=== PATIENT | female | born 1955 | race Caucasian/White ===

== ENCOUNTER 2017-08-29 02:05 | Emergency (ER) | payer BC ==
[2017-08-29] MEDS: KETOROLAC 60 MG/2 ML INJ. IM ×2 (03:04)
[2017-08-29] MEDS: HYDROcodone/APAP 5/325MG 1 TAB TABLET PO ×2 (03:04)
== END 2017-08-29 04:20 | disposition home or self-care (01) ==
LOC: ER 02:05
DX: M25.461 Effusion, right knee (principal); E11.9 Type 2 diabetes mellitus without complications; Z88.8 Allergy status to other drugs, medicaments and biological substances
CPT/HCPCS: 73562; 93971; 96372; 99284; J1885

== ENCOUNTER 2018-08-24 07:56 | Emergency (ER) | payer BC ==
[~2018-08-24] VITALS: Ht 167.6 cm; Wt 77.1 kg
[~2018-08-24 07:56] MED LIST: ASPI325T8 PO; CHOL400C2 PO; DOXY50SY PO; HYDR-3164 PO; IBUP-985 PO; INSU100I13 SQ; LISI1POW MC; LISI1TAB3 PO; METF10007 PO; METO-239 PO; MULT-234 PO
[2018-08-24 08:16] VITALS: BP 144/64
[2018-08-24] MEDS ORDERED: HYDROcodone/APAP 5/325MG 1 TAB TABLET PO ONE (08:30)
--- NOTE | 2018-08-24 08:41 | PHYS DOC ---
Past Medical History Past Medical History: CAD, Diabetes-Type II, Hypertension Past Surgical History: Hysterectomy Additional Past Surgical Histo: cabg x2 2012 Alcohol Use: None Drug Use: None Adult General Chief Complaint Chief Complaint: MECHANICAL FALL HPI HPI Patient is 63 yo female who presents with complaint of pain in R ribs, R knee, and L foot after fall on Saturday. Patient reports she was shoveling snow on Saturday while talking on the phone. She says she was not paying attention and fell over a curb. She denies loss of consciousness or hitting her head and reports she was able to walk following fall. She returned to work and Saturday where she is required to stand and ambulate, but presents today because the pain has gradually worsened. She took a tylenol PM last night for pain relief and slept with a heating pad on her ribs, however she was unable to get much rest. She also admits to chills but denies cough, chest pain, shortness of breath, abdominal pain, nausea, vomiting, or diarrhea. She denies smoking, etoh use, or drug use. Review of Systems Review of Systems Constitutional: Admits chills Eyes: Denies change in visual acuity, redness, or eye pain [] Respiratory: Denies cough or shortness of breath [] Cardiovascular: Denies chest pain or palpitations GI: Denies abdominal pain, nausea, vomiting, bloody stools or diarrhea [] Musculoskeletal: Denies back pain. Admits to R rib pain, just below R breast. Admits R knee pain. Admits L foot pain. Integument: Denies rash or skin lesions [] Neurologic: Denies headache, focal weakness or sensory changes [] Complete systems were reviewed and found to be within normal limits, except as documented in this note. Current Medications Current Medications Current Medications Medications (Trade) Dose Ordered Sig/Jaya Start Time Stop Time Status Last Admin Dose Admin Acetaminophen/ Hydrocodone Bitart (Lortab 5/325) 1 tab 1X ONCE 08/24/18 08:30 08/24/18 08:31 DC 08/24/18 08:57 1 TAB Allergies Allergies Allergies Coded Allergies Type Severity Reaction Last Updated Verified pseudoephedrine Allergy Unknown 11/12/13 Yes Physical Exam Physical Exam Constitutional: Well developed, well nourished, no acute distress, non-toxic appearance. [] HENT: Normocephalic, atraumatic, no oral exudates, nose normal Eyes: PERRLA, EOMI, conjunctiva normal Neck: Normal range of motion, no tenderness Cardiovascular:Regular rhythm, tachycardic Lungs & Thorax: Bilateral breath sounds clear to auscultation; minimal erythema RUQ Abdomen: Soft, nonperitoneal, mild RUQ tenderness to palpation. No ecchymosis. Skin: Warm, dry, no erythema, no rash. [] Back: No tenderness, no CVA tenderness. [] Extremities: Tenderness to palpation and valgus testing on lateral aspect proximal portion of R knee. L foot has minor ecchymosis and swelling. Moderate tenderness with palpation base of 5th metatarsal. Neurologic: Alert and oriented X 3, normal motor function, normal sensory function, no focal deficits noted. [] Psychologic: Affect normal, judgement normal, mood normal. [] Current Patient Data Vital Signs Vital Signs Date Time Temp Pulse Resp B/P (MAP) Pulse Ox O2 Delivery O2 Flow Rate FiO2 08/24/18 08:57 15 96 Room Air 08/24/18 08:16 98.6 100 144/64 (90) 98.6 EKG EKG [] Radiology/Procedures Radiology/Procedures [PROCEDURE: ANKLE LEFT 3V Left foot and ankle radiograph 08/24/2018 8:23 AM INDICATION: Left foot and ankle pain after fall COMPARISON: None available. TECHNIQUE: 3 views of the left foot and 3 views the left ankle are provided. FINDINGS: There is no acute fracture or dislocation. Tibial plafond and talar dome are intact. Ankle mortise is congruent. Vascular calcifications are present. Bone mineralization is within normal limits. Joint spaces are maintained. Regional soft tissues are within normal limits. There is no soft tissue gas or osseous erosion. IMPRESSION: No acute fracture or dislocation. Electronically signed by: Amy Galloway MD (08/24/2018 9:10 AM) [facility]] PROCEDURE: FOOT LEFT 3V Left foot and ankle radiograph 08/24/2018 8:23 AM INDICATION: Left foot and ankle pain after fall COMPARISON: None available. TECHNIQUE: 3 views of the left foot and 3 views the left ankle are provided. FINDINGS: There is no acute fracture or dislocation. Tibial plafond and talar dome are intact. Ankle mortise is congruent. Vascular calcifications are present. Bone mineralization is within normal limits. Joint spaces are maintained. Regional soft tissues are within normal limits. There is no soft tissue gas or osseous erosion. IMPRESSION: No acute fracture or dislocation. Electronically signed by: Amy Galloway MD (08/24/2018 9:10 AM) [facility] PROCEDURE: KNEE RIGHT 3V Right knee radiograph 08/24/2018 8:23 AM INDICATION: Right knee pain after fall, unable to extend leg COMPARISON: None available. TECHNIQUE: 3 views of the right knee are provided. FINDINGS: There is no acute fracture or dislocation. No significant knee joint effusion. Bone mineralization is within normal limits. Joint spaces are maintained. Regional soft tissues are within normal limits. There is no soft tissue gas or osseous erosion. IMPRESSION: No acute fracture or dislocation. Electronically signed by: Amy Galloway MD (08/24/2018 9:11 AM) [facility] PROCEDURE: RIBS RIGHT AND PA CHEST Right rib series with single view chest 08/24/2018 8:23 AM INDICATION: Right rib and flank pain after fall 4 days ago COMPARISON: Chest radiograph December 23, 2011 TECHNIQUE: Single view of the chest and 2 dedicated views the right ribs are provided. FINDINGS: The cardiomediastinal silhouette is within normal limits. Median sternotomy changes are present. There are no pleural effusions. There is no pulmonary vascular congestion. There is no pneumothorax. The lungs are clear. No significant osseous abnormality is identified. [place] 12th ribs are poorly visualized. However, no definite acutely displaced right rib fracture. IMPRESSION: No acute cardiopulmonary process. No definite acutely displaced right-sided rib fracture. Electronically signed by: Amy Galloway MD (08/24/2018 9:13 AM) [facility] Course & Med Decision Making Course & Med Decision Making Patient is 63 yo female w/ pmh diabetes and htn who presents with complaint of R rib, R knee, and L foot pain which have gradually worsened since mechanical fall on Saturday. Patient denies LOC or hitting her head and was able to walk and return to work after fall, however last night the pain was so severe she was unable to sleep. Additionally she reports she is unable to bare weight on L foot today. On physical exam patient is tachycardic, normotensive, and tender to palpation just below R breast, point tenderness lateral aspect proximal R knee, and R foot. Imaging of R ribs, R knee, and L ankle/foot reveal no acute osseous fracture or dislocation. Patient treated with 5/325 norco and incentive spirometry. Patient reports the norco provided minimal symptomatic relief and made her sleepy. Discussed the importance of incentive spirometry and to do 10 breaths 5x daily. Also discussed the importance of RICE for knee and foot. Patient stable for discharge with outpatient follow-up with PCP, Dr. Nava Franklin. Discussed findings and plan with patient and family, who acknowledge understanding and agreement. Dragon Disclaimer Dragon Disclaimer This electronic medical record was generated, in whole or in part, using a voice recognition dictation system. Departure Departure Impression: Primary Impression: Rib pain on right side Additional Impressions: Knee pain, right Foot pain, left Disposition: 01 HOME, SELF-CARE Condition: STABLE Referrals: NAVA FRANKLIN MD (PCP) Patient Instructions: Foot Contusion, Incentive Spirometer, Knee Pain, Easy-to- Read, Rib Contusion Additional Instructions: Please use incentive spirometer 10x in a row, 5x daily for the next 7 days. Use [place] bandage to knee and ankle to help with swelling and discomfort. Scripts Hydrocodone/Apap 5-325 (NORCO 5-325 TABLET) 1 Each Tablet 1 TAB PO PRN Q6HRS PRN for PAIN, #14 TAB 0 Refills Prov: KIRSTIN BROOKS DO 08/24/18 Problem Qualifiers Additional Impressions: Knee pain, right Chronicity: acute Qualified Codes: M25.561 - Pain in right knee KIRSTIN BROOKS DO Aug 24, 2018 08:41
--- NOTE | 2018-08-24 09:14 | RAD ---
Left foot and ankle radiograph 08/24/2018 8:23 AM INDICATION: Left foot and ankle pain after fall COMPARISON: None available. TECHNIQUE: 3 views of the left foot and 3 views the left ankle are provided. FINDINGS: There is no acute fracture or dislocation. Tibial plafond and talar dome are intact. Ankle mortise is congruent. Vascular calcifications are present. Bone mineralization is within normal limits. Joint spaces are maintained. Regional soft tissues are within normal limits. There is no soft tissue gas or osseous erosion. IMPRESSION: No acute fracture or dislocation. Electronically signed by: Amy Galloway MD (08/24/2018 9:10 AM) [facility]
--- NOTE | 2018-08-24 09:16 | RAD ---
Right knee radiograph 08/24/2018 8:23 AM INDICATION: Right knee pain after fall, unable to extend leg COMPARISON: None available. TECHNIQUE: 3 views of the right knee are provided. FINDINGS: There is no acute fracture or dislocation. No significant knee joint effusion. Bone mineralization is within normal limits. Joint spaces are maintained. Regional soft tissues are within normal limits. There is no soft tissue gas or osseous erosion. IMPRESSION: No acute fracture or dislocation. Electronically signed by: Amy Galloway MD (08/24/2018 9:11 AM) [facility]
--- NOTE | 2018-08-24 09:18 | RAD ---
Right rib series with single view chest 08/24/2018 8:23 AM INDICATION: Right rib and flank pain after fall 4 days ago COMPARISON: Chest radiograph December 23, 2011 TECHNIQUE: Single view of the chest and 2 dedicated views the right ribs are provided. FINDINGS: The cardiomediastinal silhouette is within normal limits. Median sternotomy changes are present. There are no pleural effusions. There is no pulmonary vascular congestion. There is no pneumothorax. The lungs are clear. No significant osseous abnormality is identified. Lam[place] 12th ribs are poorly visualized. However, no definite acutely displaced right rib fracture. IMPRESSION: No acute cardiopulmonary process. No definite acutely displaced right-sided rib fracture. Electronically signed by: Amy Galloway MD (08/24/2018 9:13 AM) [facility]
[2018-08-24] MEDS ORDERED: HYDR-3164 PO (10:19)
== END 2018-08-24 10:36 | disposition home or self-care (01) ==
LOC: ER 07:56
DX: R07.81 Pleurodynia (principal); M25.561 Pain in right knee; M79.672 Pain in left foot; M25.572 Pain in left ankle and joints of left foot; R00.0 Tachycardia, unspecified; R68.83 Chills (without fever); E11.9 Type 2 diabetes mellitus without complications; I10 Essential (primary) hypertension; I25.10 Atherosclerotic heart disease of native coronary artery without angina pectoris; Z90.710 Acquired absence of both cervix and uterus; Z95.1 Presence of aortocoronary bypass graft; W00.0XXA Fall on same level due to ice and snow, initial encounter; Y93.H1 Activity, digging, shoveling and raking; Y92.89 Other specified places as the place of occurrence of the external cause; Y99.8 Other external cause status
CPT/HCPCS: 71101; 73562; 73610; 73630; 99284

== ENCOUNTER 2019-07-06 17:04 | Emergency (ER) | payer BC, MEDICARE ==
[~2019-07-06] VITALS: Ht 167.6 cm; Wt 77.1 kg
[~2019-07-06 17:04] MED LIST changes: +LISI1TAB23 PO; -LISI1TAB3 PO
--- NOTE | 2019-07-06 17:43 | PHYS DOC ---
Past Medical History Past Medical History: CAD, Diabetes-Type II, Hypertension Past Surgical History: Hysterectomy Additional Past Surgical Histo: cabg x2 2012 Alcohol Use: None Drug Use: None Adult General Chief Complaint Chief Complaint: LOWER EXT PAIN HPI HPI Patient is a 64 year old female who presents with right knee pain that started Socrates night. She states that it hurts to bear weight on the knee. She also states that the pain has radiated up and down her leg intermittently. She states that it's difficult to walk although she was able to walk some with a cane. Reports her pain is 10 out of 10 in severity and sharp. The patient states she took 50 of tramadol earlier today that did not help. Denies trauma. Denies Fevers. Denies DVT history. Does have a history of arthritis. She had prior symptoms multiple times in the last several years with no answer to why she has had these symptoms. Review of Systems Review of Systems Constitutional: Denies fever or chills [] Eyes: Denies change in visual acuity, redness, or eye pain [] HENT: Denies nasal congestion or sore throat [] Respiratory: Denies cough or shortness of breath [] Cardiovascular: No additional information not addressed in HPI [] GI: Denies abdominal pain, nausea, vomiting, bloody stools or diarrhea [] : Denies dysuria or hematuria [] Musculoskeletal: Reports R knee pain. Integument: Denies rash or skin lesions [] Neurologic: Denies headache, focal weakness or sensory changes [] Endocrine: Denies polyuria or polydipsia [] Complete systems were reviewed and found to be within normal limits, except as documented in this note. Current Medications Current Medications Current Medications Medications (Trade) Dose Ordered Sig/Jaya Start Time Stop Time Status Last Admin Dose Admin Acetaminophen/ Hydrocodone Bitart (Lortab 5/325) 1 tab 1X ONCE 07/06/19 17:45 07/06/19 17:46 DC 07/06/19 18:04 1 TAB Allergies Allergies Allergies Coded Allergies Type Severity Reaction Last Updated Verified pseudoephedrine Allergy Unknown 11/12/13 Yes Physical Exam Physical Exam Constitutional: Well developed, well nourished, no acute distress, non-toxic appearance. [] HENT: Normocephalic, atraumatic, bilateral external ears normal, oropharynx moist, no oral exudates, nose normal. [] Eyes: PERRLA, EOMI, conjunctiva normal, no discharge. Skin: Warm, dry, no erythema, no rash. [] Extremities: Tenderness to right knee with mild erythema. Knee is hot to touch. Has range of motion in knee. Neurologic: Alert and oriented X 3, normal motor function, normal sensory function, no focal deficits noted. [] Psychologic: Affect normal, judgement normal, mood normal. [] Current Patient Data Vital Signs Vital Signs Date Time Temp Pulse Resp B/P (MAP) Pulse Ox O2 Delivery O2 Flow Rate FiO2 07/06/19 18:07 98.6 89 18 154/71 (98) 92 Room Air 98.6 Lab Values Laboratory Tests Test 07/06/19 18:13 White Blood Count 11.4 x10^3/uL (4.0-11.0) H Red Blood Count 4.17 x10^6/uL (3.50-5.40) Hemoglobin 11.9 g/dL (12.0-15.5) L Hematocrit 35.8 % (36.0-47.0) L Mean Corpuscular Volume 86 fL (79-100) Mean Corpuscular Hemoglobin 29 pg (25-35) Mean Corpuscular Hemoglobin Concent 33 g/dL (31-37) Red Cell Distribution Width 13.6 % (11.5-14.5) Platelet Count 289 x10^3/uL (140-400) Neutrophils (%) (Auto) 66 % (31-73) Lymphocytes (%) (Auto) 24 % (24-48) Monocytes (%) (Auto) 7 % (0-9) Eosinophils (%) (Auto) 3 % (0-3) Basophils (%) (Auto) 1 % (0-3) Neutrophils # (Auto) 7.5 x10^3/uL (1.8-7.7) Lymphocytes # (Auto) 2.7 x10^3/uL (1.0-4.8) Monocytes # (Auto) 0.8 x10^3/uL (0.0-1.1) Eosinophils # (Auto) 0.3 x10^3/uL (0.0-0.7) Basophils # (Auto) 0.1 x10^3/uL (0.0-0.2) Sodium Level 136 mmol/L (136-145) Potassium Level 4.4 mmol/L (3.5-5.1) Chloride Level 99 mmol/L (98-107) Carbon Dioxide Level 27 mmol/L (21-32) Anion Gap 10 (6-14) Blood Urea Nitrogen 24 mg/dL (7-20) H Creatinine 1.5 mg/dL (0.6-1.0) H Estimated GFR (Cockcroft-Gault) 34.9 BUN/Creatinine Ratio 16 (6-20) Glucose Level 176 mg/dL (70-99) H Uric Acid 7.6 mg/dL (2.6-6.0) H Calcium Level 10.0 mg/dL (8.5-10.1) Total Bilirubin 0.4 mg/dL (0.2-1.0) Aspartate Amino Transferase (AST) 32 U/L (15-37) Alanine Aminotransferase (ALT) 33 U/L (14-59) Alkaline Phosphatase 76 U/L (46-116) Total Protein 9.6 g/dL (6.4-8.2) H Albumin 3.9 g/dL (3.4-5.0) Albumin/Globulin Ratio 0.7 (1.0-1.7) L Laboratory Tests 07/06/19 18:13 Laboratory Tests 07/06/19 18:13 EKG EKG [] Radiology/Procedures Radiology/Procedures X-ray interpreted by Dr. Fairbanks. No acute fractures or dislocations to the R knee. Course & Med Decision Making Course & Med Decision Making Pertinent Labs and Imaging studies reviewed. (See chart for details) We'll get an x-ray of her knee. Will also get labs is I'm concerned about gout. Knee does not have the appearance of septic joint and she is able to extend the knee and bend some. Does not appear to have a DVT as she has had imaging in the past when having symptoms that ruled out. She also does not have warmth to touch anywhere except anterior knee. X-ray is unremarkable for acute emergent changes. Uric acid is elevated. Appears to be having a gout attack. Creatinine is 1.5 (I suspect that this is chronic). I will not use Colchicine (started on Saturday) or NSAIDs due to this. I will put on 40 mg of prednisone for 5 days and [place]. I will have her watch her sugars. Will have her follow up with Dr. Franklin. Clarita Disclaimer Clarita Disclaimer This electronic medical record was generated, in whole or in part, using a voice recognition dictation system. Departure Departure Impression: Primary Impression: Right knee pain Additional Impression: Gout attack Disposition: 01 HOME, SELF-CARE Condition: STABLE Referrals: NAVA FRANKLIN MD (PCP) Patient Instructions: Knee Pain Additional Instructions: Thank you for visiting [facility]. We appreciate you trusting us with your care. If any additional problems come up don't hesitate to return to visit us. Please follow up with your primary care provider so they can plan additional care if needed and know about the problem that you had. If symptoms worsen come back to the Emergency Department. Any concerning symptoms that start such as chest pain, shortness of air, weakness or numbness on one side of the body, running high fevers or any other concerning symptoms return to the ER. Please be aware that diabetes can cause your sugars to fluctuate while you are sick. This can cause additional issues. Please check your sugars often to ensure they are staying in a safe range and if you are on insulin please take as instructed by your primary care doctor. If you have any questions about this please let us know or contact your primary care provider for additional instruction about taking your insulin while you are sick. If you get concerned regarding your sugar while at home please do not hesitate to come back to the ER. Please fill your medications at any pharmacy and follow the prescription instructions. Scripts Hydrocodone/Apap 5-325 (NORCO 5-325 TABLET) 1 Each Tablet 1 TAB PO PRN Q6HRS PRN for PAIN for 3 Days, #10 TAB 0 Refills Prov: KIRSTIN CAAL APRN 07/06/19 Prednisone (PREDNISONE) 20 Mg Tablet 2 TAB PO BID for 5 Days, #20 TAB Prov: KIRSTIN CAAL APRN 07/06/19 Problem Qualifiers Primary Impression: Right knee pain Chronicity: acute Qualified Codes: M25.561 - Pain in right knee Additional Impression: Gout attack Gout site: knee Gout etiology: due to renal impairment Laterality: right Qualified Codes: M10.361 - Gout due to renal impairment, right knee KIRSTIN CAAL APRN Jul 06, 2019 17:43
[2019-07-06] MEDS ORDERED: HYDROcodone/APAP 5/325MG 1 TAB TABLET PO ONE (17:45)
[2019-07-06 18:07] VITALS: BP 154/71
[2019-07-06 18:26] LABS: BASO # 0.1 x10^3/uL (0.0-0.2); BASO % 1 % (0-3); EOS # 0.3 x10^3/uL (0.0-0.7); EOS % 3 % (0-3); HEMATOCRIT 35.8 % (36.0-47.0); HEMOGLOBIN 11.9 g/dL (12.0-15.5); LYMPH # 2.7 x10^3/uL (1.0-4.8); LYMPH % 24 % (24-48); MEAN CORPUSCULAR HEMOGLOBIN 29 pg (25-35); MEAN CORPUSCULAR HGB CONC 33 g/dL (31-37); MEAN CORPUSCULAR VOLUME 86 fL (79-100); MONO # 0.8 x10^3/uL (0.0-1.1); MONO % 7 % (0-9); NEUT # 7.5 x10^3/uL (1.8-7.7); NEUT % 66 % (31-73); PLATELET COUNT 289 x10^3/uL (140-400); RED BLOOD COUNT 4.17 x10^6/uL (3.50-5.40); RED CELL DISTRIBUTION WIDTH 13.6 % (11.5-14.5); WHITE BLOOD COUNT 11.4 x10^3/uL (4.0-11.0)
[2019-07-06 18:33] LABS: CREATININE 1.5 mg/dL (0.6-1.0); GFR 34.9; POTASSIUM 4.4 mmol/L (3.5-5.1)
[2019-07-06 18:39] LABS: ALBUMIN 3.9 g/dL (3.4-5.0); ALBUMIN/GLOBULIN RATIO 0.7 (1.0-1.7); TOTAL BILIRUBIN 0.4 mg/dL (0.2-1.0); TOTAL PROTEIN 9.6 g/dL (6.4-8.2)
[2019-07-06] MEDS ORDERED: HYDR-3164 PO (18:48)
[2019-07-06] MEDS ORDERED: PRED20TA PO (18:48)
[2019-07-06] MEDS ORDERED: methylPREDNISolone SOD SUCC PF 125 MG/2 ML VIAL. IM STA (18:49)
--- NOTE | 2019-07-06 23:33 | RAD ---
KNEE 3 VIEWS RIGHT Clinical Indication: Right posterior knee pain x2 days. Comparison: None. Findings: There is no acute fracture or dislocation. There is lateral compartment narrowing. The mineralization is normal. The patella is in anatomic position. No soft tissue swelling is seen radiographically. Arterial calcifications are noted. There is no joint effusion. IMPRESSION: No acute fracture. Electronically signed by: Allen Nguyen MD (07/06/2019 11:30 PM) [facility]
== END 2019-07-06 18:59 | disposition home or self-care (01) ==
LOC: ER 17:04
DX: M25.561 Pain in right knee (principal); M10.361 Gout due to renal impairment, right knee; I25.10 Atherosclerotic heart disease of native coronary artery without angina pectoris; E11.9 Type 2 diabetes mellitus without complications; I10 Essential (primary) hypertension; Z90.710 Acquired absence of both cervix and uterus; Z98.890 Other specified postprocedural states; Z88.8 Allergy status to other drugs, medicaments and biological substances
CPT/HCPCS: 36415; 73562; 80053; 84550; 85025; 96372; 99285; J2930